=== PATIENT | female | born 1945 | race Asian ===

== ENCOUNTER 2018-05-16 15:53 | Inpatient (IN) | payer MEDICARE ==
[~2018-05-16] VITALS: Ht 160 cm; Wt 51.5 kg
[2018-05-16] MEDS ORDERED: ALPR0.25 PO (16:20)
[2018-05-16] MEDS ORDERED: NAPR220C2 PO (16:20)
[2018-05-16] MEDS ORDERED: SODIUM CHLORIDE FLUSH 10ML SYR IVF ONE (17:00)
[2018-05-16 17:04] LABS: BASOPHILS # (AUTO) 0.04 x10^3/uL (0-0.1); BASOPHILS % (AUTO) 1 % (0-1); EOSINOPHILS # (AUTO) 0.03 x10^3/uL (0-0.4); EOSINOPHILS % (AUTO) 0 % (1-7); LYMPHOCYTES # (AUTO) 1.35 x10^3/uL (1-3.4); LYMPHOCYTES % (AUTO) 16 % (22-44); MD NO; MEAN CORPUSCULAR HEMOGLOBIN 30.6 pg (27.0-34.8); MEAN CORPUSCULAR HGB CONC 33.5 g/dL (32.4-35.8); MEAN CORPUSCULAR VOLUME 91.3 fL (80-100); MEAN PLATELET VOLUME 7.3 fL (7.4-10.4); MONOCYTES # (AUTO) 0.55 x10^3/uL (0.2-0.8); MONOCYTES % (AUTO) 7 % (2-9); NEUTROPHILS # (AUTO) 6.42 x10^3/uL (1.8-6.8); NEUTROPHILS % (AUTO) 77 % (42-75); PLATELET COUNT 344 x10^3/uL (130-400); RED BLOOD COUNT 4.59 x10^6/uL (3.82-5.3); RED CELL DISTRIBUTION WIDTH 13.6 % (9.6-15.2)
[2018-05-16 17:14] LABS: ALANINE AMINOTRANSFERASE 23 U/L (12-78); ALBUMIN 3.5 g/dL (3.4-5.0); ANION GAP 11 mmol/L (5-15); CALCIUM 8.6 mg/dL (8.5-10.1); CHLORIDE 106 mmol/L (98-107); CREATININE 0.81 mg/dL (0.55-1.02)
[2018-05-16 17:17] LABS: ALKALINE PHOSPHATASE 76 U/L (45-117); BILIRUBIN,TOTAL 0.5 mg/dL (0.2-1.0)
[2018-05-16] MEDS ORDERED: hydrALAzine 20 MG/ML, 1ML ONE (17:55)
[2018-05-16] MEDS ORDERED: hydrALAzine 20 MG/ML, 1ML IV ONE (18:00)
[2018-05-16 18:40] LABS: MICROSCOPIC INDICATED
[2018-05-16 18:43] LABS: CULTURE INDICATED? NO
[2018-05-16] MEDS ORDERED: DEXAMETHASONE 4 MG/ML, 1ML IVPush ONE (19:00)
[2018-05-16] MEDS ORDERED: ONDANSETRON ODT 4 MG PO PRN (19:00)
[2018-05-16] MEDS ORDERED: PLEASE ENTER ALLERGIES MC SCH (19:30)
[2018-05-16 19:57] VITALS: BP 168/98
[2018-05-16] MEDS: TEMAZEPAM 15 MG CAPSULE PO PRN (23:14)
[2018-05-17 01:28] VITALS: BP 143/90
[2018-05-17] MEDS: DEXAMETHASONE 4 MG/ML, 1ML IVPush SCH ×4 (03:15→20:47)
[2018-05-17 06:31] VITALS: BP 162/105
[2018-05-17] MEDS: hydrALAzine 20 MG/ML, 1ML IVPush PRN (06:38)
[2018-05-17 08:56] VITALS: BP 110/74
[2018-05-17 13:41] VITALS: BP 113/75
[2018-05-17] MEDS: OMEPRAZOLE 20 MG CAPSULE.DR PO SCH (14:02)
[2018-05-17] MEDS: ACETAMINOPHEN 325 MG TABLET PO PRN (15:16)
[2018-05-17 16:19] VITALS: BP 162/99
[2018-05-17 19:01] VITALS: BP 162/97
[2018-05-18] MEDS: hydrALAzine 20 MG/ML, 1ML IVPush PRN (01:30)
[2018-05-18 01:34] VITALS: BP 164/106
[2018-05-18 02:35] VITALS: BP 126/81
[2018-05-18] MEDS: DEXAMETHASONE 4 MG/ML, 1ML IVPush SCH ×5 (02:35→20:59)
[2018-05-18 05:18] LABS: BASOPHILS % (AUTO) 0 % (0-1); EOSINOPHILS % (AUTO) 0 % (1-7); LYMPHOCYTES # (AUTO) 0.88 x10^3/uL (1-3.4); LYMPHOCYTES % (AUTO) 6 % (22-44); MD NO; MEAN CORPUSCULAR HEMOGLOBIN 30.6 pg (27.0-34.8); MEAN CORPUSCULAR HGB CONC 33.5 g/dL (32.4-35.8); MEAN CORPUSCULAR VOLUME 91.6 fL (80-100); MEAN PLATELET VOLUME 7.8 fL (7.4-10.4); MONOCYTES # (AUTO) 0.21 x10^3/uL (0.2-0.8); MONOCYTES % (AUTO) 1 % (2-9); NEUTROPHILS # (AUTO) 14.84 x10^3/uL (1.8-6.8); NEUTROPHILS % (AUTO) 93 % (42-75); PLATELET COUNT 386 x10^3/uL (130-400); RED BLOOD COUNT 4.72 x10^6/uL (3.82-5.3); RED CELL DISTRIBUTION WIDTH 13.6 % (9.6-15.2)
[2018-05-18 05:29] LABS: ANION GAP 13 mmol/L (5-15); CALCIUM 9.1 mg/dL (8.5-10.1); CHLORIDE 108 mmol/L (98-107); CREATININE 0.82 mg/dL (0.55-1.02)
[2018-05-18] MEDS: OMEPRAZOLE 20 MG CAPSULE.DR PO SCH (06:00)
[2018-05-18 08:44] VITALS: BP 157/96
[2018-05-18 12:52] VITALS: BP 146/88
[2018-05-18] MEDS: ACETAMINOPHEN 325 MG TABLET PO PRN (20:07)
[2018-05-18] MEDS: TEMAZEPAM 15 MG CAPSULE PO PRN (20:07)
[2018-05-19] MEDS: TEMAZEPAM 15 MG CAPSULE PO PRN (00:49)
[2018-05-19 01:51] VITALS: BP 133/84
[2018-05-19] MEDS: DEXAMETHASONE 4 MG/ML, 1ML IVPush SCH ×2 (03:10→08:55)
[2018-05-19] MEDS: OMEPRAZOLE 20 MG CAPSULE.DR PO SCH (05:06)
[2018-05-19 05:41] LABS: BASOPHILS # (AUTO) 0.02 x10^3/uL (0-0.1); BASOPHILS % (AUTO) 0 % (0-1); EOSINOPHILS % (AUTO) 0 % (1-7); LYMPHOCYTES % (AUTO) 5 % (22-44); MD NO; MEAN CORPUSCULAR HEMOGLOBIN 30.6 pg (27.0-34.8); MEAN CORPUSCULAR HGB CONC 33.3 g/dL (32.4-35.8); MEAN CORPUSCULAR VOLUME 91.8 fL (80-100); MEAN PLATELET VOLUME 7.7 fL (7.4-10.4); MONOCYTES % (AUTO) 2 % (2-9); NEUTROPHILS # (AUTO) 12.37 x10^3/uL (1.8-6.8); NEUTROPHILS % (AUTO) 93 % (42-75); PLATELET COUNT 322 x10^3/uL (130-400)
[2018-05-19 05:53] LABS: ANION GAP 11 mmol/L (5-15); CALCIUM 8.8 mg/dL (8.5-10.1); CHLORIDE 107 mmol/L (98-107); CREATININE 0.74 mg/dL (0.55-1.02)
[2018-05-19 06:27] VITALS: BP 159/91
[2018-05-19] MEDS: ACETAMINOPHEN 325 MG TABLET PO PRN (08:55)
[2018-05-19] MEDS: DOCUSATE 100 MG CAPSULE PO PRN (10:45)
[2018-05-19 13:46] VITALS: BP 149/75
[2018-05-19 19:18] VITALS: BP 160/97
[2018-05-19 20:07] VITALS: BP 163/97
[2018-05-20 01:07] VITALS: BP 150/92
[2018-05-20] MEDS: OMEPRAZOLE 20 MG CAPSULE.DR PO SCH (05:43)
[2018-05-20 06:39] VITALS: BP 150/90
[2018-05-20] MEDS: DOCUSATE 100 MG CAPSULE PO PRN (08:56)
[2018-05-20] MEDS: LISINOPRIL 10 MG TABLET PO SCH (11:41)
[2018-05-20 12:07] VITALS: BP 136/88
[2018-05-20] MEDS ORDERED: GADOBUTROL 7.5 MMOL/7.5 ML PFS ONE (14:09)
[2018-05-21 01:26] VITALS: BP 142/88
[2018-05-21] MEDS: TEMAZEPAM 15 MG CAPSULE PO PRN (02:56)
[2018-05-21] MEDS: OMEPRAZOLE 20 MG CAPSULE.DR PO SCH (05:32)
[2018-05-21 07:57] VITALS: BP 146/89
[2018-05-21] MEDS: LISINOPRIL 10 MG TABLET PO SCH (08:26)
[2018-05-21] MEDS ORDERED: LACTULOSE 20 GM/30 ML UDC PO PRN (09:30)
[2018-05-21] MEDS: ACETAMINOPHEN 325 MG TABLET PO PRN (10:24)
[2018-05-21 11:51] VITALS: BP 162/104
[2018-05-21 12:03] LABS: BASOPHILS # (AUTO) 0.04 x10^3/uL (0-0.1); BASOPHILS % (AUTO) 0 % (0-1); EOSINOPHILS # (AUTO) 0.01 x10^3/uL (0-0.4); EOSINOPHILS % (AUTO) 0 % (1-7); LYMPHOCYTES # (AUTO) 1.31 x10^3/uL (1-3.4); LYMPHOCYTES % (AUTO) 12 % (22-44); MD NO; MEAN CORPUSCULAR HEMOGLOBIN 30.4 pg (27.0-34.8); MEAN CORPUSCULAR HGB CONC 33.5 g/dL (32.4-35.8); MEAN CORPUSCULAR VOLUME 90.7 fL (80-100); MEAN PLATELET VOLUME 6.9 fL (7.4-10.4); MONOCYTES # (AUTO) 0.61 x10^3/uL (0.2-0.8); MONOCYTES % (AUTO) 6 % (2-9); NEUTROPHILS # (AUTO) 8.74 x10^3/uL (1.8-6.8); NEUTROPHILS % (AUTO) 82 % (42-75); PLATELET COUNT 272 x10^3/uL (130-400); RED BLOOD COUNT 4.76 x10^6/uL (3.82-5.3); RED CELL DISTRIBUTION WIDTH 13.6 % (9.6-15.2)
[2018-05-21 12:14] LABS: INTERNATIONAL NORMALIZED RATIO 1.04 (0.93-1.1)
[2018-05-21 12:16] LABS: ALANINE AMINOTRANSFERASE 33 U/L (12-78); ALBUMIN 3.5 g/dL (3.4-5.0); ANION GAP 11 mmol/L (5-15); CALCIUM 8.6 mg/dL (8.5-10.1); CHLORIDE 108 mmol/L (98-107); CREATININE 0.88 mg/dL (0.55-1.02)
[2018-05-21 12:18] LABS: ALKALINE PHOSPHATASE 85 U/L (45-117); BILIRUBIN,TOTAL 0.7 mg/dL (0.2-1.0); TOTAL PROTEIN 7.7 g/dL (6.4-8.2)
[2018-05-21] MEDS ORDERED: ALTEPLASE 5 MG in SYRINGE 1 EA IVPush ONE (13:00)
[2018-05-21] MEDS ORDERED: ALTEPLASE IV ONE (13:00)
[2018-05-21] MEDS ORDERED: POTASSIUM CHLORIDE 40 MEQ in SODIUM CHLORIDE 0.9% 500 ML IV ONE (13:00)
[2018-05-22 04:29] VITALS: BP 144/98
[2018-05-22] MEDS: OMEPRAZOLE 20 MG CAPSULE.DR PO SCH (06:01)
[2018-05-22] MEDS ORDERED: POTASSIUM CHLORIDE 20 MEQ TAB.ER.PRT PO ONE (07:30)
[2018-05-22] MEDS: ACETAMINOPHEN 325 MG TABLET PO PRN ×2 (08:00→14:12)
[2018-05-22] MEDS: LISINOPRIL 10 MG TABLET PO SCH (08:00)
[2018-05-22 19:18] VITALS: BP 139/77
[2018-05-22] MEDS: TEMAZEPAM 15 MG CAPSULE PO PRN (22:49)
[2018-05-23 03:54] VITALS: BP 125/87
[2018-05-23] MEDS: OMEPRAZOLE 20 MG CAPSULE.DR PO SCH (05:31)
[2018-05-23 07:56] VITALS: BP 140/97
[2018-05-23] MEDS: LISINOPRIL 10 MG TABLET PO SCH (08:44)
[2018-05-23 12:42] VITALS: BP 131/85
[2018-05-23] MEDS: ENOXAPARIN 60 MG/0.6 ML SQ SCH (17:20)
[2018-05-23 19:11] VITALS: BP 114/80
[2018-05-23] MEDS ORDERED: ATORVASTATIN 40 MG TABLET PO SCH (21:00)
[2018-05-23] MEDS ORDERED: OMNIPAQUE 350 MG/ML, 100ML BOTTLE ONE (23:50)
[2018-05-24 01:05] VITALS: BP 107/75
[2018-05-24] MEDS: OMEPRAZOLE 20 MG CAPSULE.DR PO SCH (05:06)
[2018-05-24] MEDS: ENOXAPARIN 60 MG/0.6 ML SQ SCH (05:06)
[2018-05-24 07:42] VITALS: BP 126/86
[2018-05-24] MEDS: LISINOPRIL 10 MG TABLET PO SCH (08:22)
[2018-05-24 13:43] VITALS: BP 130/87
[2018-05-24] MEDS ORDERED: LISI-167 PO (13:57)
[2018-05-24] MEDS ORDERED: ENOX60SY4 SQ (13:57)
[2018-05-24] MEDS ORDERED: ACET325T14 PO (13:57)
[2018-05-24] MEDS ORDERED: OMEP-110 PO (13:57)
[2018-05-24] MEDS ORDERED: ATOR40TA78 PO (13:57)
== END 2018-05-24 16:05 | DRG 61 ==
LOC: ED 17:31 → EDIP 18:29 → 3NW 19:37 → 4EST 05-17 16:12 → CCU 05-21 12:49 → 4WST 05-22 19:13
PROVIDERS: ADMIT Internal Medicine; ATTEND Internal Medicine
DX: I63.9 Cerebral infarction, unspecified (principal); J18.9 Pneumonia, unspecified organism; C34.90 Malignant neoplasm of unspecified part of unspecified bronchus or lung; C79.31 Secondary malignant neoplasm of brain; J98.11 Atelectasis; D68.59 Other primary thrombophilia; G81.94 Hemiplegia, unspecified affecting left nondominant side; I16.0 Hypertensive urgency; H53.2 Diplopia; E87.6 Hypokalemia; R53.81 Other malaise; I10 Essential (primary) hypertension; F41.9 Anxiety disorder, unspecified; R15.9 Full incontinence of feces; R45.1 Restlessness and agitation; F03.90 Unspecified dementia, unspecified severity, without behavioral disturbance, psychotic disturbance, mood disturbance, and anxiety; F17.200 Nicotine dependence, unspecified, uncomplicated; I08.2 Rheumatic disorders of both aortic and tricuspid valves; I70.0 Atherosclerosis of aorta; R62.7 Adult failure to thrive; W06.XXXA Fall from bed, initial encounter; Y92.89 Other specified places as the place of occurrence of the external cause; Y93.89 Activity, other specified; Z79.01 Long term (current) use of anticoagulants; Z79.02 Long term (current) use of antithrombotics/antiplatelets; Z84.89 Family history of other specified conditions; Z88.1 Allergy status to other antibiotic agents; Z88.6 Allergy status to analgesic agent
CPT/HCPCS: 36415; 70450; 70496; 70498; 70553; 71045; 80048; 80053; 81001; 81241; 83735; 85025; 85300; 85303; 85306; 85598; 85610; 85613; 85670; 85730; 85732; 86146; 86147; 87081; 93306; 93880; 96374; 99285; A9585; G0378; J1100; J1650; J2997; J3480; Q9967; 92523-GN; J0360; J7040